=== PATIENT | female | born 1960 | race Caucasian/White ===

== ENCOUNTER → 2017-07-24 | Outpatient (CLI) | payer OTHER ==
[2017-07-24 13:19] LABS: BASO % 0.6 %; BASO ABS # 0.04 K/uL (0-0.2); EOS % 4.9 %; HEMATOCRIT 42.2 % (37-47); HEMOGLOBIN 14.8 g/dL (12.0-16.0); IG# 0.01 K/uL (0.00-0.02); LYMPH % 37.4 %; LYMPH ABS # 2.31 K/uL (1.2-3.4); MEAN CELL VOLUME 90.4 fL (80-100); MEAN CORPUSCULAR HEMOGLOBIN 31.7 pg (25-34); MEAN CORPUSCULAR HGB CONC 35.1 g/dl (32-36); MEAN PLATELET VOLUME 9.8 fL (7.4-10.4); MONO % 8.4 %; MONO ABS # 0.52 K/uL (0.11-0.59); NEUT % 48.5 %; PLATELET COUNT 320 K/uL (130-400); RED CELL DISTRIBUTION WIDTH CV 12.1 % (11.5-14.5); RED CELL DISTRIBUTION WIDTH SD 39.9 fL (36.4-46.3); WHITE BLOOD COUNT 6.18 K/uL (4.8-10.8)
[2017-07-24 13:38] LABS: HEMOGLOBIN A1C 7.1 % (4.5-5.6)
[2017-07-24 14:11] LABS: ALBUMIN 3.6 gm/dl (3.4-5.0); ALT/SGPT 54 U/L (12-78); BLOOD UREA NITROGEN 11 mg/dl (7-18); CALCIUM 8.9 mg/dl (8.5-10.1); CARBON DIOXIDE 25 mmol/L (21-32); CHOLESTEROL 199 mg/dl (0-200); CREATININE 0.84 mg/dl (0.60-1.20); GLUCOSE 169 mg/dl (70-99); POTASSIUM 3.8 mmol/L (3.5-5.1); SODIUM 135 mmol/L (136-145)
[2017-07-24 14:22] LABS: ALKALINE PHOSPHATASE 60 U/L (45-117); AST/SGOT 44 U/L (15-37); LDL CHOLESTEROL CALCULATED 116 mg/dl; TOTAL PROTEIN 7.4 gm/dl (6.4-8.2)
== END | disposition home or self-care (01) ==
LOC: C.LABMFLN 09:03
PROVIDERS: ATTEND Family Medicine
DX: E11.9 Type 2 diabetes mellitus without complications (principal); I10 Essential (primary) hypertension